=== PATIENT | female | born 1935 | race Caucasian/White ===

== ENCOUNTER → 2018-11-25 | Outpatient (CLI) | payer MEDICARE, OTHER, MEDICAID ==
[~2018-11-25] MED LIST: ASPIRIN 81M81 MG/TA2 PO; FERROUSAL325 MG PO; NORVASC 5MG5 MG/TAB PO; TYLENOL 8 HR PO; ZOCOR 20MG20 MG PO
== END ==
LOC: COL.RAD 09:51
DX: M25.551 Pain in right hip (principal)
CPT/HCPCS: J3301; Q9967